=== PATIENT | male | born 1955 | race African-American/Black ===

== ENCOUNTER 2024-09-23 19:04 | Inpatient (IN) | payer MEDICARE, OTHER ==
[~2024-09-23] VITALS: Ht 177.8 cm; Wt 55.3 kg
[~2024-09-23 19:04] MED LIST: AMLO5TAB88 PO; AMYL1CAP59 PO; PANT40TA51 PO
[2024-09-23] MEDS ORDERED: MORPHINE SULFATE 4 MG/ML INJ (FOR IV/IM USE) IV STA (20:12)
[2024-09-23] MEDS ORDERED: KETOROLAC 15MG/ML VIAL IV ONE (20:15)
[2024-09-23 21:45] LABS: CHLORIDE 107 mEq/L (98-107); SODIUM 135 mEq/L (136-145)
[2024-09-23 21:46] LABS: CALCIUM 9.4 mg/dL (8.7-10.4); CARBON DIOXIDE 20 mEq/L (21-32)
[2024-09-23 21:51] LABS: CREATININE 0.9 mg/dL (0.6-1.3); GLUCOSE 116 mg/dL (70-105)
[2024-09-23 21:52] LABS: ETHANOL BLOOD < 10 mg/dL (<10); UREA NITROGEN BLOOD 12 mg/dL (9-23)
[2024-09-23 21:53] LABS: ACETAMINOPHEN < 2 ug/mL (10-30); ALANINE AMINOTRANSFERASE 15 IU/L (10-49); ALBUMIN 3.7 g/dL (3.2-4.8); ASPARTATE AMINOTRANSFERASE 20 IU/L (<34)
[2024-09-23 21:54] LABS: BILIRUBIN DIRECT < 0.1 mg/dL (<=3.0); BILIRUBIN TOTAL 0.2 mg/dL (0.1-1.0); PROTEIN TOTAL 6.7 g/dL (6.0-8.3)
[2024-09-23 22:59] LABS: BASOPHILS % 0.4 % (0.0-2.0); DIFFERENTIAL COMMENT 0; EOSINOPHILS % 2.6 % (0.0-5.0); LYMPHOCYTES % 27.5 % (20.0-50.0); MEAN CORPUSCULAR HEMOGLOBIN 32.5 pg (28.0-32.0); MEAN CORPUSCULAR HGB CONC 31.6 g/dL (31.0-37.0); MEAN CORPUSCULAR VOLUME 103.1 fL (80.0-94.0); MEAN PLATELET VOLUME 9.6 fl (7.4-10.4); MONOCYTES % 12.1 % (2.0-8.0); NEUTROPHILS % 57.4 % (40.0-76.0); PLATELET 72 x1000/uL (130-400); RED BLOOD CELL COUNT 3.39 mill/uL (4.7-6.1); RED CELL DISTRIBUTION WIDTH 16.9 % (11.6-14.6); WHITE BLOOD COUNT 4.3 x1000/uL (4.5-11.0)
[2024-09-23] MEDS ORDERED: CLONIDINE 0.1MG TABLET PO PRN (23:15)
[2024-09-23] MEDS ORDERED: ONDANSETRON HCL 4MG/2ML INJ IV PRN (23:15)
[2024-09-23] MEDS ORDERED: MAGNESIUM/ALUMINUM HYDROXIDE/SIMETHICONE 30ML UDC PO PRN (23:15)
[2024-09-23] MEDS ORDERED: ACETAMINOPHEN 325MG TABLET PO PRN (23:15)
[2024-09-23] MEDS ORDERED: IPRATROPIUM/ALBUTEROL 0.5-3(2.5)MG/3ML NEB NEB PRN (23:15)
[2024-09-23] MEDS ORDERED: MORPHINE SULFATE 2 MG/ML INJ (NOT FOR IM USE) IV PRN (23:15)
[2024-09-23] MEDS ORDERED: ENOXAPARIN 40MG/0.4ML SYR SUBCUT SCH (23:15)
[2024-09-23] MEDS: KETOROLAC 15MG/ML VIAL IV NR (23:27)
[2024-09-23] MEDS: MORPHINE SULFATE 4 MG/ML INJ (FOR IV/IM USE) IV NR (23:27)
[2024-09-23] MEDS: SODIUM CHLORIDE 0.9% 1,000 ML IV ONE (23:28)
[2024-09-23] MEDS: SODIUM CHLORIDE 0.9% 1,000 ML IV SCH (23:30)
[2024-09-24 01:42] VITALS: BP 111/73; PULSE 88; RESP 18; TEMP 36.5
[2024-09-24 04:00] VITALS: BP 110/70; PULSE 86; RESP 18; TEMP 36.1; O2SAT 98
[2024-09-24] MEDS: PANTOPRAZOLE SODIUM 40 MG/VIAL IV SCH (08:28)
[2024-09-24] MEDS: LIPASE/PROTEASE/AMYLASE 12,000/38,000/60,000 UNITS CAP DR PO SCH (08:28)
[2024-09-24] MEDS: AMLODIPINE 5MG TABLET PO SCH (08:36)
[2024-09-24 12:00] VITALS: BP 112/61; PULSE 73; RESP 20; TEMP 36.7; O2SAT 98
[2024-09-24 16:16] LABS: BASOPHILS % 0.7 % (0.0-2.0); DIFFERENTIAL COMMENT 0; HEMATOCRIT. 31.3 % (42.0-52.0); HEMOGLOBIN. 9.7 g/dL (14.0-18.0); LYMPHOCYTES % 17.6 % (20.0-50.0); MEAN CORPUSCULAR HEMOGLOBIN 32.2 pg (28.0-32.0); MEAN CORPUSCULAR HGB CONC 31.1 g/dL (31.0-37.0); MEAN CORPUSCULAR VOLUME 103.4 fL (80.0-94.0); MEAN PLATELET VOLUME 10.2 fl (7.4-10.4); MONOCYTES % 14.7 % (2.0-8.0); PLATELET 199 x1000/uL (130-400); RED BLOOD CELL COUNT 3.03 mill/uL (4.7-6.1); RED CELL DISTRIBUTION WIDTH 16.8 % (11.6-14.6); WHITE BLOOD COUNT 5.2 x1000/uL (4.5-11.0)
[2024-09-24 16:27] LABS: CARBON DIOXIDE 23 mEq/L (21-32)
[2024-09-24 16:28] LABS: CALCIUM 8.9 mg/dL (8.7-10.4); CHLORIDE 110 mEq/L (98-107); POTASSIUM 4.9 mEq/L (3.5-5.1); SODIUM 139 mEq/L (136-145)
[2024-09-24 16:32] LABS: CREATININE 0.8 mg/dL (0.6-1.3); GLUCOSE 147 mg/dL (70-105); UREA NITROGEN BLOOD 11 mg/dL (9-23)
[2024-09-24] MEDS: MORPHINE SULFATE 4 MG/ML INJ (FOR IV/IM USE) IV PRN (18:37)
[2024-09-25] VITALS: BP 107/71; PULSE 91; RESP 19; TEMP 37.1; O2SAT 99
[2024-09-25] MEDS: HYDROCODONE/ACETAMINOPHEN 5/325MG TABLET PO PRN (00:35)
[2024-09-25 04:00] VITALS: BP 121/68; PULSE 73; RESP 19; TEMP 36.3; O2SAT 100
[2024-09-25 08:00] VITALS: BP 128/87; PULSE 80; RESP 19; TEMP 36.3; O2SAT 94
[2024-09-25 12:00] VITALS: BP 119/82; PULSE 84; RESP 19; TEMP 36.3; O2SAT 99
[2024-09-25 16:00] VITALS: BP 136/88; PULSE 90; RESP 19; TEMP 36.2; O2SAT 98
[2024-09-25 16:51] LABS: BASOPHILS % 0.6 % (0.0-2.0); DIFFERENTIAL COMMENT 0; EOSINOPHILS % 3.9 % (0.0-5.0); HEMATOCRIT. 29.6 % (42.0-52.0); HEMOGLOBIN. 9.5 g/dL (14.0-18.0); LYMPHOCYTES % 19.7 % (20.0-50.0); MEAN CORPUSCULAR HEMOGLOBIN 32.4 pg (28.0-32.0); MEAN CORPUSCULAR VOLUME 101.5 fL (80.0-94.0); MEAN PLATELET VOLUME 9.7 fl (7.4-10.4); MONOCYTES % 14.1 % (2.0-8.0); NEUTROPHILS % 61.7 % (40.0-76.0); PLATELET 263 x1000/uL (130-400); RED BLOOD CELL COUNT 2.91 mill/uL (4.7-6.1); RED CELL DISTRIBUTION WIDTH 16.3 % (11.6-14.6); WHITE BLOOD COUNT 5.4 x1000/uL (4.5-11.0)
[2024-09-25 17:01] LABS: CHLORIDE 108 mEq/L (98-107); SODIUM 139 mEq/L (136-145)
[2024-09-25 17:02] LABS: CALCIUM 8.3 mg/dL (8.7-10.4); CARBON DIOXIDE 24 mEq/L (21-32)
[2024-09-25 17:07] LABS: CREATININE 0.8 mg/dL (0.6-1.3); GLUCOSE 104 mg/dL (70-105); UREA NITROGEN BLOOD 7 mg/dL (9-23)
[2024-09-25 20:00] VITALS: BP 121/79; PULSE 87; RESP 18; TEMP 36.7; O2SAT 100
[2024-09-26] VITALS: BP 125/82; PULSE 91; RESP 18; TEMP 36.6; O2SAT 100
[2024-09-26 08:00] VITALS: BP 138/90; PULSE 80; RESP 17; TEMP 36.5; O2SAT 96
[2024-09-26 12:00] VITALS: BP 112/65; PULSE 86; RESP 18; TEMP 36.9; O2SAT 100
[2024-09-26 16:00] VITALS: BP 138/84; PULSE 76; RESP 17; TEMP 36.4; O2SAT 97
[2024-09-26 20:00] VITALS: PULSE 90; RESP 16; TEMP 36; O2SAT 99
[2024-09-26] MEDS: RISPERIDONE 0.25MG TABLET PO SCH (22:25)
[2024-09-27] VITALS: BP 125/80; PULSE 85; RESP 18; TEMP 36.4; O2SAT 99
[2024-09-27 04:00] VITALS: BP 103/71; PULSE 82; RESP 16; TEMP 36.3; O2SAT 98
[2024-09-27 07:57] VITALS: BP 143/93; PULSE 96; RESP 19; TEMP 36.6; O2SAT 100
[2024-09-27 12:00] VITALS: BP 140/95; PULSE 97; RESP 18; TEMP 36.6; O2SAT 100
[2024-09-27 16:00] VITALS: BP 126/81; PULSE 98; RESP 18; TEMP 36.6; O2SAT 99
[2024-09-28] VITALS (7 sets, daily range): BP systolic 91–135; BP diastolic 52–92; PULSE 80–94; RESP 18–20; TEMP 35.9–36.4; O2SAT 98–100
== END 2024-09-28 18:45 | disposition hospice, home (50) | DRG 640 ==
LOC: ER 19:04 → 6EST 23:04 → ENRESERV 23:39
PROVIDERS: ADMIT Internal Medicine; ATTEND Internal Medicine
DX: E86.0 Dehydration (principal); G82.50 Quadriplegia, unspecified; G93.41 Metabolic encephalopathy; K86.1 Other chronic pancreatitis; Z68.1 Body mass index [BMI] 19.9 or less, adult; G89.4 Chronic pain syndrome; R62.7 Adult failure to thrive; I10 Essential (primary) hypertension; F39 Unspecified mood [affective] disorder; D64.9 Anemia, unspecified; R53.81 Other malaise; F10.20 Alcohol dependence, uncomplicated; K74.60 Unspecified cirrhosis of liver; F41.9 Anxiety disorder, unspecified; Z51.5 Encounter for palliative care; Z85.038 Personal history of other malignant neoplasm of large intestine; Z86.73 Personal history of transient ischemic attack (TIA), and cerebral infarction without residual deficits; Z99.3 Dependence on wheelchair
CPT/HCPCS: 36415; 80048; 80076; 80307; 80320; 80329; 85025; 92523; 93970; 97110; 97162; 97166; 97530; 99285; A4606; J1885; J2270; J2470; J7030; G0480

== ENCOUNTER 2024-10-23 19:16 | Emergency (ER) | payer MEDICARE, OTHER ==
[~2024-10-23] VITALS: Ht 167.6 cm; Wt 50.0 kg
[2024-10-23 19:32] VITALS: BP 127/60; PULSE 85; RESP 18; TEMP 36.7; O2SAT 99
[2024-10-23 20:30] VITALS: TEMP 98
[2024-10-23] MEDS: ACETAMINOPHEN 325MG TABLET PO ONE (20:30)
== END 2024-10-23 22:54 | disposition home or self-care (01) ==
LOC: ER 19:16
DX: R10.9 Unspecified abdominal pain (principal); I10 Essential (primary) hypertension; Z85.038 Personal history of other malignant neoplasm of large intestine; Z79.899 Other long term (current) drug therapy
CPT/HCPCS: 99283

== ENCOUNTER 2024-10-25 15:50 | Emergency (ER) | payer MEDICARE, OTHER ==
[~2024-10-25] VITALS: Ht 170.2 cm; Wt 70.0 kg
[2024-10-25 15:54] VITALS: BP 131/78; PULSE 89; RESP 16; TEMP 36.4; O2SAT 100
[2024-10-25] MEDS ORDERED: DICYCLOMINE 10 MG/5 ML ORAL SYR PO STA (16:05)
[2024-10-25] MEDS: FAMOTIDINE 20MG TABLET PO ONE (16:25)
[2024-10-25] MEDS: ONDANSETRON 4MG ODT PO STA (16:25)
[2024-10-25] MEDS: DICYCLOMINE HCL 10MG CAPSULE PO SCH (16:25)
[2024-10-25] MEDS: MAGNESIUM/ALUMINUM HYDROXIDE/SIMETHICONE 30ML UDC PO STA (16:25)
[2024-10-25 19:19] LABS: BASOPHILS % 0.9 % (0.0-2.0); EOSINOPHILS % 2.7 % (0.0-5.0); HEMATOCRIT. 32.6 % (42.0-52.0); HEMOGLOBIN. 10.2 g/dL (14.0-18.0); LYMPHOCYTES % 23.9 % (20.0-50.0); MEAN PLATELET VOLUME 8.1 fl (7.4-10.4); MONOCYTES % 3.0 % (2.0-8.0); NEUTROPHILS % 69.5 % (40.0-76.0); PLATELET 367 x1000/uL (130-400); RED BLOOD CELL COUNT 3.30 mill/uL (4.7-6.1); RED CELL DISTRIBUTION WIDTH 16.0 % (11.6-14.6)
[2024-10-25 19:30] LABS: CREATININE 1.0 mg/dL (0.6-1.3); ETHANOL BLOOD 300 mg/dL (<10); UREA NITROGEN BLOOD 16 mg/dL (9-23)
[2024-10-25 19:31] LABS: ASPARTATE AMINOTRANSFERASE 25 IU/L (<34)
[2024-10-25 19:32] LABS: BILIRUBIN DIRECT < 0.1 mg/dL (<=3.0); BILIRUBIN TOTAL < 0.2 mg/dL (0.1-1.0); PROTEIN TOTAL 6.7 g/dL (6.0-8.3)
[2024-10-25 19:33] LABS: INR 1.0
[2024-10-25] MEDS: SODIUM CHLORIDE 0.9% 1,000 ML IV ONE (20:11)
== END 2024-10-26 03:40 | disposition home or self-care (01) ==
LOC: ER 15:50
DX: G89.29 Other chronic pain (principal); R10.9 Unspecified abdominal pain; F10.129 Alcohol abuse with intoxication, unspecified; I10 Essential (primary) hypertension; Z85.038 Personal history of other malignant neoplasm of large intestine; Z79.899 Other long term (current) drug therapy; Y90.8 Blood alcohol level of 240 mg/100 ml or more
CPT/HCPCS: 80076; 80048; 80320; 83690; 85025; 85610; 96360; 96361; 99284; Q0162; J7030; G0480